=== PATIENT | female | born 1965 | race Caucasian/White ===

== ENCOUNTER 2019-04-09 22:12 | Emergency (ER) | payer SELFPAY ==
[2019-04-09] MEDS ORDERED: Iopamidol 370 76% 100 ML VIAL IV ONE (22:13)
[2019-04-09 22:39] LABS: #Basophils 0.1 thou/uL (0.0-0.2); #Monocytes 0.8 thou/uL (0.11-0.59); #Neutrophils 5.4 thou/uL (1.40-6.50); %Basophils 0.7 % (0.0-1.0); %Eosinophils 0.3 % (0.0-10.0); %Lymphocytes 13.7 % (21.0-51.0); %Monocytes 11.1 % (0.0-10.0); %Neutrophils 74.2 % (42.0-75.0); Hemoglobin 14.7 g/dL (12.0-16.0); Mean Corpuscular HGB CONC 33.8 g/dL (32.0-36.0); Mean Corpuscular Hemoglobin 30.6 pg (27.0-31.0); Mean Corpuscular Volume 90.6 fL (78.0-98.0); Mean Platelet Volume 7.1 fL (7.4-10.4); Platelet Count 221 thou/uL (130-400); RBC Distribution Width 11.5 % (11.5-14.5); Red Blood Cell (RBC) Count 4.81 mill/uL (4.20-5.40); White Blood Cell (WBC) Count 7.3 thou/uL (4.8-10.8)
[2019-04-09] MEDS ORDERED: diphenhydrAMINE 50 MG/ML VIAL ONE (22:43)
[2019-04-09] MEDS ORDERED: Morphine 4 MG/ML VIAL ONE (22:43)
[2019-04-09] MEDS ORDERED: Metoclopramide HCl 10 MG/2 ML VIAL ONE (22:43)
[2019-04-09 22:54] LABS: ALT (SGPT) 23 U/L (8-55); AST (SGOT) 20 U/L (5-34); Albumin 4.4 g/dL (3.5-5.0); Alkaline Phosphatase 101 U/L (40-150); Anion Gap 18 mmol/L (10-20); BUN (Urea Nitrogen) 10 mg/dL (9.8-20.1); Bilirubin, Total 0.6 mg/dL (0.2-1.2); Calc. Creatinine Clearance 0 mL/min (70-130); Calcium 9.8 mg/dL (7.8-10.44); Carbon Dioxide 21 mmol/L (22-29); Chloride 103 mmol/L (98-107); Estimated GFR-MDRD 84; Glucose 99 mg/dL (70-105); Lipase 29 U/L (8-78); Potassium 3.7 mmol/L (3.5-5.1); Protein, Total 7.4 g/dL (6.0-8.3); Sodium 138 mmol/L (136-145)
[2019-04-10 00:26] LABS: Bilirubin Negative (Negative); Blood, Urine Negative (Negative); Clarity Clear (Clear); Glucose, Urine (Dipstick) Negative (Negative); Leukocyte Negative (Negative); Nitrite Negative (Negative); Protein, Urine (Dipstick) Negative (Neg-Trace); Urobilinogen 0.2 mg/dL (Less than 2)
[2019-04-10] MEDS ORDERED: Metoclopramide HCl 10 MG/2 ML VIAL ONE (01:45)
[2019-04-10] MEDS ORDERED: Cipro 250 MG TAB ONE (01:47)
[2019-04-10] MEDS ORDERED: metroNIDAZOLE 500 MG TAB ONE (01:47)
--- NOTE | 2019-04-10 07:36 | CT ---
PRELIMINARY REPORT/[facility]/EMERGENCY AFTER HOURS PROCEDURE EXAM: CT Abdomen and Pelvis With Contrast EXAM DATE/TIME: 04/10/2019 12:39 AM CLINICAL HISTORY: 54 years old, female; Abdominal pain; Periumbilical; Additional info: PT with lower abd pain since la st pm. Initially came and went but today it has been constant with radiation into the back. Also with VALERA all day "like a vice" also with some neck pain. Abdominal exam included findings of abdomen tender, to the left lower quadrant, to the right lower quadrant, to mcburney's point, to the suprapubic regio n, moderate intensity, more severe in rlq with some guarding but no rebound. No surgical HX TECHNIQUE: Imaging protocol: Computed tomography of the abdomen and pelvis with intravenous contrast. Radiation optimization: All CT scans at this facility use at least one of these dose optimization techniques: automated exposure control; mA and/or kV adjustment per patient size (includes targeted exams where dose is matched to clinical indication); or iterative reconstruction. Contrast material: ISOVUE 370; Contrast volume: 96 ml; Contrast route: RT AC; COMPARISON: No relevant prior studies available. FINDINGS: Liver: Normal size and density. Nonspecific 12 mm right hepatic hypodense focus may represent a small cyst. No mass. Gallbladder and bile ducts: Normal. No calcified stones. No ductal dilation. Pancreas: Normal. No ductal dilation. Spleen: Normal. No splenomegaly. Adrenals: Normal. No mass. Kidneys and ureters: Normal size and enhancement. Mild pelvocallliectasis is without overt hydronephrosis. Stomach and bowel: There is a segment of colonic wall thickening consistent with mild acute colitis/diverticulitis. As an underlying colonic malignancy cannot be excluded, a follow-up examinati on after a course of treatment is recommended if clinically warranted. No obstruction or perforation. Appendix: No evidence of appendicitis. Intraperitoneal space: No free air. No significant fluid collection. Vasculature: No abdominal aortic aneurysm. Lymph nodes: No enlarged lymph nodes. Bladder: There is mild bladder wall thickening consistent with incomplete distension, chronic outflow obstruction, or cystitis. Reproductive: Unremarkable as visualized. Bones/joints: No acute fracture. Soft tissues: Unremarkable. IMPRESSION: There is a segment of colonic wall thickening consistent with mild acute colitis/diverticulitis. As a n underlying colonic malignancy cannot be excluded, a follow-up examination after a course of treatment is recommended if clinically warranted. Thank you for allowing us to participate in the care of your patient. Dictated and Authenticated by: Mariposa Fortune MD 04/10/2019 1:35 AM Central Time ([place] & [place]) FINAL REPORT EMERGENCY AFTER HOURS CT ABDOMEN AND PELVIS: HISTORY: Lower abdominal pain since last night. Radiation of pain to the back. COMPARISON: None. IMPRESSION: 1. 11 mm hypodense lesion right hepatic lobe which is difficult to further characterize on this exam. There is also a tiny subcentimeter low-density focus which is too small to characterize adjacent to the gallbladder in the left hepatic lobe. 2. Subcentimeter too small to characterize hypodense lesion superior pole right kidney. 3. Vascular calcifications. 4. The preliminary report mentions segment of colonic wall thickening. While there is suggestion of c olonic wall thickening, this is probably attributable to incomplete distention as opposed to colitis. There is evidence of colonic diverticulosis. Loops of small bowel are normal in caliber. 5. No CT evidence of appendicitis. Findings are in agreement with the report by [facility]. Transcribed Date/Time: 04/10/2019 8:07 AM
== END 2019-04-10 02:05 | disposition home or self-care (01) ==
LOC: NAV ERS 22:12
DX: K57.32 Diverticulitis of large intestine without perforation or abscess without bleeding (principal); G43.909 Migraine, unspecified, not intractable, without status migrainosus; Z79.899 Other long term (current) drug therapy
CPT/HCPCS: 36415; 74177; 80053; 81003; 83605; 83690; 85025; 87040; 93005; 94760; 96361; 96374; 96375; 96376; J1200; J2270; J2765; Q9967

== ENCOUNTER 2019-11-03 10:58 | Emergency (ER) | payer OTHER, SELFPAY ==
[2019-11-03] MEDS ORDERED: Ibuprofen 200 MG TAB ONE (11:15)
--- NOTE | 2019-11-03 11:37 | RAD ---
3 VIEWS RIGHT FOOT: Date: 11/03/2019 COMPARISON: None. HISTORY: Injury, trauma, pain. FINDINGS: There is a fracture involving the mid/distal shaft of the fifth proximal phalanx with impaction and m ild lateral displacement. No evidence for dislocation or intraarticular extension. There is degenerative change involving the first metatarsophalangeal joint. IMPRESSION: Acute fracture of the fifth proximal phalanx as detailed above. POS: [facility]
== END 2019-11-03 11:45 | disposition home or self-care (01) ==
LOC: NAV ERS 10:58
DX: S92.511A Displaced fracture of proximal phalanx of right lesser toe(s), initial encounter for closed fracture (principal); W22.8XXA Striking against or struck by other objects, initial encounter

== ENCOUNTER 2020-03-09 19:48 | Emergency (ER) | payer SELFPAY ==
[~2020-03-09 19:48] MED LIST: Iopamidol 370 76% 100 ML VIAL ONE
[2020-03-09 20:03] LABS: #Basophils 0.1 thou/uL (0.0-0.2); #Eosinphils 0.1 thou/uL (0.0-0.7); #Lymphocytes 3.5 thou/uL (1.20-3.40); #Monocytes 0.8 thou/uL (0.11-0.59); #Neutrophils 4.6 thou/uL (1.40-6.50); %Basophils 0.6 % (0.0-1.0); %Eosinophils 1.4 % (0.0-10.0); %Lymphocytes 38.3 % (21.0-51.0); %Monocytes 8.6 % (0.0-10.0); %Neutrophils 51.2 % (42.0-75.0); Mean Corpuscular HGB CONC 32.4 g/dL (32.0-36.0); Mean Corpuscular Hemoglobin 31.1 pg (27.0-31.0); Mean Platelet Volume 8.3 fL (7.4-10.4); Platelet Count 263 thou/uL (130-400); RBC Distribution Width 11.5 % (11.5-14.5); Red Blood Cell (RBC) Count 4.52 mill/uL (4.20-5.40)
[2020-03-09 20:12] LABS: PTT 29.5 sec (22.9-36.1); Prothrombin Time 12.9 sec (12.0-14.7)
--- NOTE | 2020-03-09 20:16 | CT ---
CT head noncontrast HISTORY: Right-sided weakness. FINDINGS: There is no evidence of acute intracranial hemorrhage or infarct. The ventricles appear nor mal in size, shape and position. There is no mass effect or shift of midline structures. Visualized paranasal sinuses remain well aera maria m. IMPRESSION : No acute intracranial abnormalities are demonstrated. Findings were called to Dr. Leonardo in the [place] emergency department at 12 hours Code CR.
[2020-03-09 20:20] LABS: ALT (SGPT) 17 U/L (8-55); AST (SGOT) 16 U/L (5-34); Albumin 4.2 g/dL (3.5-5.0); Alkaline Phosphatase 87 U/L (40-110); Anion Gap 17 mmol/L (10-20); BUN (Urea Nitrogen) 18 mg/dL (9.8-20.1); Bilirubin, Total 0.4 mg/dL (0.2-1.2); Calc. Creatinine Clearance 0 mL/min (70-130); Calcium 9.6 mg/dL (7.8-10.44); Carbon Dioxide 20 mmol/L (22-29); Chloride 105 mmol/L (98-107); Estimated GFR-MDRD 75; Globulin 2.9 g/dL (2.4-3.5); Glucose 95 mg/dL (70-105); Potassium 3.9 mmol/L (3.5-5.1); Protein, Total 7.1 g/dL (6.0-8.3); Sodium 138 mmol/L (136-145)
[2020-03-09] MEDS ORDERED: Aspirin Chewable 81 MG TAB ONE (20:36)
--- NOTE | 2020-03-09 20:39 | CT ---
CT arteriogram head with IV contrast and 3-D imaging HISTORY: Right-sided weakness. FINDINGS: [place] is intact. Good flow into each cerebral and cerebellar system. No focal oc clusion or aneurysm evident. No enhancing brain lesions. Aortic arch is not included. IMPRESSION : No acute vascular abnormalities are demonstrated. Findings were called to Dr. Leonardo in the [facility] emergency department at 2031 hours Code CR.
== END 2020-03-09 20:43 | disposition short-term general hospital (02) ==
LOC: NAV ERS 19:48
DX: I63.9 Cerebral infarction, unspecified (principal); G81.91 Hemiplegia, unspecified affecting right dominant side; R29.810 Facial weakness
CPT/HCPCS: 36416; 37195; 70450; 70496; 70498; 80053; 84484; 85025; 85610; 85730; 93005; 94760; J2997; Q9967

== ENCOUNTER 2020-08-10 18:03 | Emergency (ER) | payer SELFPAY ==
[2020-08-10 18:58] LABS: #Eosinphils 0.1 thou/uL (0.0-0.7); #Lymphocytes 1.9 thou/uL (1.20-3.40); #Monocytes 0.4 thou/uL (0.11-0.59); #Neutrophils 2.8 thou/uL (1.40-6.50); %Basophils 0.7 % (0.0-1.0); %Eosinophils 1.3 % (0.0-10.0); %Lymphocytes 36.3 % (21.0-51.0); %Monocytes 7.2 % (0.0-10.0); %Neutrophils 54.5 % (42.0-75.0); Mean Corpuscular HGB CONC 33.2 g/dL (32.0-36.0); Mean Corpuscular Hemoglobin 31.5 pg (27.0-31.0); Mean Platelet Volume 8.3 fL (7.4-10.4); RBC Distribution Width 11.6 % (11.5-14.5)
[2020-08-10 19:01] LABS: ALT (SGPT) 42 U/L (8-55); AST (SGOT) 28 U/L (5-34); Albumin 4.3 g/dL (3.5-5.0); Alkaline Phosphatase 98 U/L (40-110); Anion Gap 17 mmol/L (10-20); BUN (Urea Nitrogen) 18 mg/dL (9.8-20.1); Bilirubin, Total 0.7 mg/dL (0.2-1.2); Calc. Creatinine Clearance 0 mL/min (70-130); Calcium 9.4 mg/dL (7.8-10.44); Carbon Dioxide 20 mmol/L (22-29); Chloride 105 mmol/L (98-107); Globulin 2.7 g/dL (2.4-3.5); Glucose 97 mg/dL (70-105); Potassium 3.9 mmol/L (3.5-5.1); Sodium 138 mmol/L (136-145)
[2020-08-10 19:13] LABS: Hemoglobin 13.5 g/dL (12.0-16.0); Platelet Count 251 thou/uL (130-400)
[2020-08-10 19:18] LABS: White Blood Cell (WBC) Count 7.2 thou/uL (4.8-10.8)
--- NOTE | 2020-08-10 19:44 | RAD ---
PORTABLE CHEST: History: Severe cough, shortness of breath. History of Covid in June. FINDINGS: Heart size is within normal limits. There is atherosclerotic change of the aorta. The lungs are clear of any infiltrates. IMPRESSION: No active intrathoracic disease. POS: OFF
== END 2020-08-10 19:55 | disposition home or self-care (01) ==
LOC: NAV ERS 18:03
DX: U07.1 COVID-19 (principal); R06.4 Hyperventilation; E78.5 Hyperlipidemia, unspecified; I10 Essential (primary) hypertension; Z79.899 Other long term (current) drug therapy; Z86.73 Personal history of transient ischemic attack (TIA), and cerebral infarction without residual deficits
CPT/HCPCS: 71045; 80053; 83605; 84484; 85025

== ENCOUNTER 2020-10-18 00:06 | Emergency (ER) | payer SELFPAY ==
[2020-10-18 00:59] LABS: #Basophils 0.1 thou/uL (0.0-0.2); #Eosinphils 0.1 thou/uL (0.0-0.7); #Monocytes 0.6 thou/uL (0.11-0.59); #Neutrophils 3.7 thou/uL (1.40-6.50); %Eosinophils 1.3 % (0.0-10.0); %Lymphocytes 40.5 % (21.0-51.0); %Monocytes 7.4 % (0.0-10.0); %Neutrophils 49.8 % (42.0-75.0); Hemoglobin 13.6 g/dL (12.0-16.0); Mean Corpuscular HGB CONC 33.8 g/dL (32.0-36.0); Mean Corpuscular Volume 94.6 fL (78.0-98.0); Mean Platelet Volume 7.7 fL (7.4-10.4); Platelet Count 212 thou/uL (130-400); RBC Distribution Width 11.3 % (11.5-14.5); Red Blood Cell (RBC) Count 4.27 mill/uL (4.20-5.40); White Blood Cell (WBC) Count 7.5 thou/uL (4.8-10.8)
[2020-10-18 01:03] LABS: PTT 30.3 sec (22.9-36.1); Prothrombin Time 13.5 sec (12.0-14.7)
[2020-10-18 01:07] LABS: Bilirubin Negative (Negative); Blood, Urine Negative (Negative); Clarity Clear (Clear); Glucose, Urine (Dipstick) Negative (Negative); Ketone, Urine Negative (Negative); Leukocyte Negative (Negative); Nitrite Negative (Negative); Protein, Urine (Dipstick) Negative (Neg-Trace); Specific Gravity, Urine 1.025 (1.005-1.030); Urobilinogen 0.2 mg/dL (Less than 2); pH, Urine 6.5 (5.0-9.0)
[2020-10-18 01:10] LABS: ALT (SGPT) 17 U/L (8-55); AST (SGOT) 15 U/L (5-34); Albumin 3.8 g/dL (3.5-5.0); Alkaline Phosphatase 70 U/L (40-110); Anion Gap 14 mmol/L (10-20); BUN (Urea Nitrogen) 16 mg/dL (9.8-20.1); Bilirubin, Total 0.3 mg/dL (0.2-1.2); Calc. Creatinine Clearance 0 mL/min (70-130); Calcium 8.8 mg/dL (7.8-10.44); Carbon Dioxide 22 mmol/L (22-29); Chloride 108 mmol/L (98-107); Globulin 2.6 g/dL (2.4-3.5); Glucose 99 mg/dL (70-105); Protein, Total 6.4 g/dL (6.0-8.3); Sodium 140 mmol/L (136-145)
[2020-10-18] MEDS ORDERED: Sodium Chloride 0.9% 1,000 ML ONE (01:38)
[2020-10-18] MEDS ORDERED: Metoclopramide HCl 10 MG/2 ML VIAL ONE (01:38)
[2020-10-18] MEDS ORDERED: diphenhydrAMINE 50 MG/ML VIAL ONE (01:38)
[2020-10-18] MEDS ORDERED: Sodium Chloride 0.9% 100 ML ONE (01:46)
== END 2020-10-18 02:21 | disposition short-term general hospital (02) ==
LOC: NAV ERS 00:06
DX: I63.9 Cerebral infarction, unspecified (principal); R29.810 Facial weakness; G81.91 Hemiplegia, unspecified affecting right dominant side; I10 Essential (primary) hypertension; E78.5 Hyperlipidemia, unspecified; Z79.82 Long term (current) use of aspirin; Z79.899 Other long term (current) drug therapy
CPT/HCPCS: 70450; 71045; 80053; 81003; 84484; 85025; 85610; 85730; 93005; J1200; J2765; J7050

== ENCOUNTER 2021-05-04 23:00 | Emergency (ER) | payer SELFPAY ==
[2021-05-04] MEDS ORDERED: Ondansetron PF 4 MG/2 ML Vial ONE (23:23)
[2021-05-04] MEDS ORDERED: Morphine 4 MG/ML VIAL ONE (23:23)
[2021-05-04 23:28] LABS: #Basophils 0.1 thou/uL (0.0-0.2); #Eosinphils 0.1 thou/uL (0.0-0.7); #Lymphocytes 3.2 thou/uL (1.20-3.40); #Monocytes 0.5 thou/uL (0.11-0.59); #Neutrophils 3.7 thou/uL (1.40-6.50); %Eosinophils 1.4 % (0.0-10.0); %Lymphocytes 41.9 % (21.0-51.0); %Neutrophils 48.8 % (42.0-75.0); Hemoglobin 13.7 g/dL (12.0-16.0); Mean Corpuscular HGB CONC 33.7 g/dL (32.0-36.0); Mean Corpuscular Hemoglobin 32.3 pg (27.0-31.0); Mean Platelet Volume 7.7 fL (7.4-10.4); Platelet Count 212 thou/uL (130-400); RBC Distribution Width 11.2 % (11.5-14.5); Red Blood Cell (RBC) Count 4.22 mill/uL (4.20-5.40); White Blood Cell (WBC) Count 7.6 thou/uL (4.8-10.8)
[2021-05-04 23:46] LABS: ALT (SGPT) 15 U/L (8-55); AST (SGOT) 15 U/L (5-34); Alkaline Phosphatase 69 U/L (40-110); Anion Gap 15 mmol/L (10-20); BUN (Urea Nitrogen) 17 mg/dL (9.8-20.1); Bilirubin, Total 0.6 mg/dL (0.2-1.2); Calc. Creatinine Clearance 0 mL/min (70-130); Calcium 9.1 mg/dL (7.8-10.44); Carbon Dioxide 21 mmol/L (22-29); Chloride 107 mmol/L (98-107); Globulin 2.4 g/dL (2.4-3.5); Glucose 93 mg/dL (70-105); Lipase 30 U/L (8-78); Potassium 3.9 mmol/L (3.5-5.1); Protein, Total 6.4 g/dL (6.0-8.3); Sodium 139 mmol/L (136-145)
[2021-05-05] MEDS ORDERED: Morphine 4 MG/ML VIAL ONE (00:48)
== END 2021-05-05 01:47 | disposition short-term general hospital (02) ==
LOC: NAV ERS 23:00
DX: R10.13 Epigastric pain (principal); M54.9 Dorsalgia, unspecified; E78.5 Hyperlipidemia, unspecified; I10 Essential (primary) hypertension; Z86.73 Personal history of transient ischemic attack (TIA), and cerebral infarction without residual deficits; Z79.01 Long term (current) use of anticoagulants; Z79.899 Other long term (current) drug therapy
CPT/HCPCS: 36415; 80053; 83690; 84484; 85025; 93005; 96374; 96375; 96376; J2270; J2405

== ENCOUNTER 2022-09-07 18:37 | Emergency (ER) | payer SELFPAY ==
[2022-09-07] MEDS ORDERED: Fentanyl 100 MCG/2 ML VIAL ONE (19:02)
[2022-09-07] MEDS ORDERED: Ondansetron PF 4 MG/2 ML Vial ONE (19:02)
[2022-09-07] MEDS ORDERED: Sodium Chloride 0.9% 1,000 ML ONE (19:02)
[2022-09-07 19:23] LABS: #Monocytes 0.4 thou/uL (0.11-0.59); #Neutrophils 1.4 thou/uL (1.40-6.50); %Basophils 1.6 % (0.0-1.0); %Eosinophils 0.6 % (0.0-10.0); %Lymphocytes 34.3 % (21.0-51.0); %Monocytes 14.4 % (0.0-10.0); Hemoglobin 12.8 g/dL (12.0-16.0); Mean Corpuscular Hemoglobin 31.9 pg (27.0-31.0); Mean Corpuscular Volume 96.9 fl (78.0-98.0); Mean Platelet Volume 8.7 fL (7.4-10.4); Platelet Count 179 10x3/uL (130-400); RBC Distribution Width 12.4 % (11.5-14.5); Red Blood Cell (RBC) Count 4.02 mill/uL (4.20-5.40); White Blood Cell (WBC) Count 2.9 10x3/uL (4.8-10.8)
[2022-09-07 19:32] LABS: ALT (SGPT) 22 U/L (8-55); AST (SGOT) 27 U/L (5-34); Alkaline Phosphatase 71 U/L (40-110); Anion Gap 15 mmol/L (10-20); BUN (Urea Nitrogen) 13 mg/dL (9.8-20.1); Bilirubin, Total 0.4 mg/dL (0.2-1.2); Calc. Creatinine Clearance 0 mL/min (70-130); Calcium 8.8 mg/dL (7.8-10.44); Carbon Dioxide 25 mmol/L (22-29); Chloride 102 mmol/L (98-107); Estimated GFR 81; Globulin 2.2 g/dL (2.4-3.5); Glucose 94 mg/dL (70-105); Lipase 35 U/L (8-78); Potassium 3.9 mmol/L (3.5-5.1); Protein, Total 6.2 g/dL (6.0-8.3); Sodium 138 mmol/L (136-145)
[2022-09-07 19:48] LABS: Bilirubin Negative (Negative); Blood, Urine Negative (Negative); Glucose, Urine (Dipstick) Negative (Negative); Ketone, Urine Trace mg/dL (Negative); Leukocyte Negative (Negative); Nitrite Negative (Negative); Protein, Urine (Dipstick) Negative (Neg-Trace); Urobilinogen 0.2 mg/dL (Less than 2); pH, Urine 5.5 (5.0-9.0)
[2022-09-07 19:54] LABS: Clarity SL HAZY (Clear); Specific Gravity, Urine 1.022 (1.005-1.030)
== END 2022-09-07 21:00 | disposition home or self-care (01) ==
LOC: NAV ERS 18:37
DX: J10.1 Influenza due to other identified influenza virus with other respiratory manifestations (principal); R10.31 Right lower quadrant pain; I10 Essential (primary) hypertension; E78.00 Pure hypercholesterolemia, unspecified; Z86.73 Personal history of transient ischemic attack (TIA), and cerebral infarction without residual deficits; Z79.899 Other long term (current) drug therapy
CPT/HCPCS: 74177; 80053; 81003; 83605; 83690; 84484; 85025; 87804; 93005; 96374; 96375; J2405; J3010; J7050; Q9967

== ENCOUNTER 2022-10-07 12:58 | Emergency (ER) | payer OTHER, SELFPAY ==
[2022-10-07] MEDS ORDERED: traMADol HCl 50 MG TAB ONE (13:29)
== END 2022-10-07 14:34 | disposition home or self-care (01) ==
LOC: NAV ERS 12:58
DX: S22.31XA Fracture of one rib, right side, initial encounter for closed fracture (principal); S20.01XA Contusion of right breast, initial encounter; I10 Essential (primary) hypertension; E78.2 Mixed hyperlipidemia; Z86.73 Personal history of transient ischemic attack (TIA), and cerebral infarction without residual deficits; Z79.899 Other long term (current) drug therapy; W01.198A Fall on same level from slipping, tripping and stumbling with subsequent striking against other object, initial encounter
CPT/HCPCS: 94799

== ENCOUNTER 2024-01-15 18:05 | Emergency (ER) | payer OTHER, SELFPAY ==
[2024-01-15] MEDS ORDERED: Cyclobenzaprine 10 MG TAB ONE (18:26)
[2024-01-15] MEDS ORDERED: Ondansetron ODT 4 MG TAB ONE (18:26)
[2024-01-15] MEDS ORDERED: HYDROcodone/Acetaminophen 10/325 mg Tablet ONE (18:58)
== END 2024-01-15 19:43 | disposition home or self-care (01) ==
LOC: NAV ERS 18:05
DX: S39.012A Strain of muscle, fascia and tendon of lower back, initial encounter (principal); M79.631 Pain in right forearm; I10 Essential (primary) hypertension; Z79.02 Long term (current) use of antithrombotics/antiplatelets; Z79.899 Other long term (current) drug therapy; W18.30XA Fall on same level, unspecified, initial encounter; Y92.512 Supermarket, store or market as the place of occurrence of the external cause
CPT/HCPCS: 72100; Q0162

== ENCOUNTER 2024-07-27 17:42 | Emergency (ER) | payer SELFPAY ==
[2024-07-27] MEDS ORDERED: Sodium Chloride 0.9% 1,000 ML ONE (17:58)
[2024-07-27 18:10] LABS: #Basophils 0.1 thou/uL (0.0-0.2); #Eosinophils 0.3 thou/uL (0.0-0.7); #Lymphocytes 2.1 thou/uL (1.20-3.40); #Monocytes 0.6 thou/uL (0.11-0.59); #Neutrophils 3.8 thou/uL (1.40-6.50); %Basophils 1.1 % (0.0-1.0); %Eosinophils 4.6 % (0.0-10.0); %Lymphocytes 30.8 % (21.0-51.0); %Monocytes 8.1 % (0.0-10.0); %Neutrophils 55.5 % (42.0-75.0); Hematocrit 37.9 % (36.0-47.0); Hemoglobin 12.7 g/dL (12.0-16.0); Mean Corpuscular HGB CONC 33.4 g/dL (32.0-36.0); Mean Corpuscular Hemoglobin 30.3 pg (27.0-31.0); Mean Corpuscular Volume 90.6 fl (78.0-98.0); Mean Platelet Volume 7.4 fL (7.4-10.4); Platelet Count 275 10x3/uL (130-400); RBC Distribution Width 10.9 % (11.5-14.5); Red Blood Cell (RBC) Count 4.18 mill/uL (4.20-5.40); White Blood Cell (WBC) Count 6.8 10x3/uL (4.8-10.8)
[2024-07-27 18:42] LABS: ALT (SGPT) 46 U/L (8-55); AST (SGOT) 34 U/L (5-34); Albumin 3.5 g/dL (3.4-4.8); Alkaline Phosphatase 99 U/L (40-110); Anion Gap 12 mmol/L (10-20); BUN (Urea Nitrogen) 20 mg/dL (9.8-20.1); Bilirubin, Total 0.3 mg/dL (0.2-1.2); Calc. Creatinine Clearance 0 mL/min (70-130); Calcium 9.2 mg/dL (7.8-10.44); Carbon Dioxide 26 mmol/L (23-31); Chloride 107 mmol/L (98-107); Estimated GFR 80; Globulin 2.8 g/dL (2.4-3.5); Glucose 121 mg/dL (80-115); Potassium 3.9 mmol/L (3.5-5.1); Protein, Total 6.3 g/dL (5.8-8.1); Sodium 141 mmol/L (136-145)
[2024-07-27 18:49] LABS: Troponin I Less than 0.010 ng/mL (< 0.028)
== END 2024-07-27 19:56 | disposition home or self-care (01) ==
LOC: NAV ERS 17:42
DX: B34.9 Viral infection, unspecified (principal); E86.0 Dehydration; I10 Essential (primary) hypertension; E78.00 Pure hypercholesterolemia, unspecified; Z86.73 Personal history of transient ischemic attack (TIA), and cerebral infarction without residual deficits
CPT/HCPCS: 36415; 71046; 80053; 83605; 83880; 84484; 85025; 85379; 87040; 87428; 93005; 94760; 96360; J7030